=== PATIENT | female | born 1985 | race Two or more races ===

== ENCOUNTER → 2018-02-16 | Outpatient (CLI) | payer OTHER ==
[~2018-02-16] MED LIST: ALBU18HF INH; FERR325T18 PO
[2018-02-16 15:41] LABS: ALANINE AMINOTRANSFERASE 17 U/L (12-78); ALBUMIN 3.4 g/dL (3.4-5.0); ANION GAP 7 mmol/L (5-15); CALCIUM 8.8 mg/dL (8.5-10.1); CHLORIDE 110 mmol/L (98-107); CREATININE 0.71 mg/dL (0.55-1.02)
[2018-02-16 15:43] LABS: BASOPHILS # (AUTO) 0.05 x10^3/uL (0-0.1); BASOPHILS % (AUTO) 1 % (0-1); EOSINOPHILS % (AUTO) 8 % (1-7); LYMPHOCYTES # (AUTO) 1.28 x10^3/uL (1-3.4); LYMPHOCYTES % (AUTO) 13 % (22-44); MD NO; MEAN CORPUSCULAR HEMOGLOBIN 22.4 pg (27.0-34.8); MEAN CORPUSCULAR HGB CONC 31.4 g/dL (32.4-35.8); MEAN CORPUSCULAR VOLUME 71.2 fL (80-100); MEAN PLATELET VOLUME 9.4 fL (7.4-10.4); MONOCYTES # (AUTO) 0.38 x10^3/uL (0.2-0.8); MONOCYTES % (AUTO) 4 % (2-9); NEUTROPHILS # (AUTO) 7.23 x10^3/uL (1.8-6.8); NEUTROPHILS % (AUTO) 74 % (42-75); PLATELET COUNT 397 x10^3/uL (130-400); RED BLOOD COUNT 4.82 x10^6/uL (3.82-5.3); RED CELL DISTRIBUTION WIDTH 18.3 % (9.6-15.2)
[2018-02-16 15:45] LABS: ALKALINE PHOSPHATASE 106 U/L (45-117); BILIRUBIN,TOTAL 0.2 mg/dL (0.2-1.0); TOTAL PROTEIN 7.7 g/dL (6.4-8.2)
[2018-02-16 16:06] LABS: INTERNATIONAL NORMALIZED RATIO 1.02 (0.93-1.1); PROTHROMBIN TIME 10.5 Seconds (9.6-11.5)
== END | disposition home or self-care (01) ==
LOC: STAR 14:28
PROVIDERS: ATTEND Specialist
DX: D25.9 Leiomyoma of uterus, unspecified (principal)
CPT/HCPCS: 36415; 80053; 84703; 85025; 85610; 85730

== ENCOUNTER 2018-03-02 12:58 | Inpatient (IN) | payer OTHER ==
[~2018-03-02] VITALS: Ht 154.9 cm; Wt 138.4 kg
[~2018-03-02 12:58] MED LIST changes: -ALBU18HF INH
[2018-03-02] MEDS ORDERED: BUPIVACAINE/PF 0.25% ONE (13:00)
[2018-03-02] MEDS ORDERED: ALBU18HF INH (13:21)
[2018-03-02] MEDS ORDERED: ACETAMINOPHEN 500 MG TABLET PO ONE (13:30)
[2018-03-02] MEDS ORDERED: OxyconTIN ER 20 MG TAB.ER PO ONE (13:30)
[2018-03-02] MEDS ORDERED: GABAPENTIN 300 MG CAPSULE PO ONE (13:30)
[2018-03-02] MEDS ORDERED: SCOPOLAMINE PATCH, 1.5MG PATCH.TD72 TD ONE (13:30)
[2018-03-02] MEDS: LACTATED RINGERS 1,000 ML IV SCH (13:39)
[2018-03-02] MEDS ORDERED: DEXAMETHASONE 4 MG/ML, 1ML ONE (13:44)
[2018-03-02] MEDS ORDERED: PROPOFOL 10 MG/ML, 20ML ONE (13:44)
[2018-03-02] MEDS ORDERED: CEFOTETAN 2 GM ONE (13:44)
[2018-03-02] MEDS ORDERED: ROCURONIUM 10 MG/ML,10ML ONE (13:44)
[2018-03-02] MEDS ORDERED: SUGAMMADEX 200 MG/2 ML IVPush ONE ×2 (13:44→15:40)
[2018-03-02] MEDS ORDERED: PHENYLEPHRINE 10 MG/ML ONE (13:44)
[2018-03-02] MEDS ORDERED: FENTANYL PF 100 MCG/2ML IV PRN (15:00)
[2018-03-02] MEDS ORDERED: PNEUMOCOCCAL 23 VACCINE IM-VACC ONE (15:00)
[2018-03-02] MEDS ORDERED: HALOPERIDOL 5 MG/ML IV PRN (15:00)
[2018-03-02] MEDS ORDERED: HYDROmorphone 1 MG/ML, 1ML IV PRN (15:00)
[2018-03-02] MEDS ORDERED: OXYcodone 5 MG/5 ML ORAL.SOL UDC PO PRN (15:00)
[2018-03-02] MEDS ORDERED: ALBUTEROL SULFATE 2.5 MG/3 ML NPPB PRN (15:00)
[2018-03-02] MEDS ORDERED: PROMETHAZINE 25 MG/ML, 1ML IV PRN (15:00)
[2018-03-02] MEDS ORDERED: LABETALOL 5MG/ML, 20ML IV PRN (15:00)
[2018-03-02] MEDS ORDERED: LORazepam 2 MG/ML, 1ML IVPush PRN (15:00)
[2018-03-02] MEDS ORDERED: hydrALAzine 20 MG/ML, 1ML IV PRN (15:00)
[2018-03-02] MEDS ORDERED: FENTANYL PF 250 MCG/5ML ONE ×2 (16:08→16:09)
[2018-03-02] MEDS ORDERED: MIDAZOLAM 1 MG/ML, 2ML ONE (16:08)
[2018-03-02] MEDS ORDERED: FENTANYL PF 100 MCG/2ML ONE (16:17)
[2018-03-02] MEDS ORDERED: MEPERIDINE/PF 50 MG/ML ONE (16:46)
[2018-03-02] MEDS ORDERED: OXYcodone 5 MG/5 ML ORAL.SOL UDC ONE (16:47)
[2018-03-02] MEDS: MEPERIDINE/PF 25MG/0.5ML IVPush PRN ×2 (16:55→17:28)
[2018-03-02] MEDS ORDERED: ONDANSETRON 2MG/ML, 2ML IVPush PRN (17:00)
[2018-03-02] MEDS ORDERED: morphine SULFATE 10 MG/ML, 1ML IVPush PRN (17:00)
[2018-03-02] MEDS ORDERED: PROMETHAZINE 25 MG/ML, 1ML ONE (17:23)
[2018-03-02] MEDS ORDERED: ONDANSETRON 2MG/ML, 2ML ONE (17:24)
[2018-03-02] MEDS ORDERED: KETOROLAC 30 MG/1 ML ONE (17:31)
[2018-03-02] MEDS: KETOROLAC 30 MG/1 ML IVPush PRN (17:34)
[2018-03-02 19:57] VITALS: BP 110/74
[2018-03-03] MEDS: D5%-0.45NACL+KCL 20MEQ 1,000 ML IV SCH ×3 (00:15→13:29)
[2018-03-03 00:16] VITALS: BP 140/88
[2018-03-03 03:59] VITALS: BP 117/80
[2018-03-03] MEDS: KETOROLAC 30 MG/1 ML IVPush PRN ×2 (06:18→20:59)
[2018-03-03 07:40] VITALS: BP 93/60
[2018-03-03 13:27] VITALS: BP 126/79
[2018-03-03 20:02] VITALS: BP 125/79
[2018-03-04 02:02] VITALS: BP 109/69
[2018-03-04] MEDS: D5%-0.45NACL+KCL 20MEQ 1,000 ML IV SCH ×3 (07:13→16:58)
[2018-03-04 07:50] VITALS: BP 125/77
[2018-03-04] MEDS ORDERED: OXYcodone/APAP 5/325MG TABLET PO PRN (10:00)
[2018-03-04 14:47] VITALS: BP 124/76
[2018-03-04] MEDS ORDERED: ONDANSETRON ODT 4 MG PO PRN (19:30)
[2018-03-04 20:02] VITALS: BP 127/68
[2018-03-05 01:38] VITALS: BP 146/85
[2018-03-05 05:56] LABS: BASOPHILS # (AUTO) 0.04 x10^3/uL (0-0.1); BASOPHILS % (AUTO) 0 % (0-1); EOSINOPHILS # (AUTO) 0.24 x10^3/uL (0-0.4); EOSINOPHILS % (AUTO) 2 % (1-7); LYMPHOCYTES # (AUTO) 1.16 x10^3/uL (1-3.4); LYMPHOCYTES % (AUTO) 10 % (22-44); MD NO; MEAN CORPUSCULAR HEMOGLOBIN 22.7 pg (27.0-34.8); MEAN CORPUSCULAR HGB CONC 31.6 g/dL (32.4-35.8); MEAN CORPUSCULAR VOLUME 71.8 fL (80-100); MEAN PLATELET VOLUME 8.9 fL (7.4-10.4); MONOCYTES # (AUTO) 0.47 x10^3/uL (0.2-0.8); MONOCYTES % (AUTO) 4 % (2-9); NEUTROPHILS % (AUTO) 84 % (42-75); PLATELET COUNT 405 x10^3/uL (130-400); RED BLOOD COUNT 3.38 x10^6/uL (3.82-5.3); RED CELL DISTRIBUTION WIDTH 18.6 % (9.6-15.2)
[2018-03-05 06:05] LABS: ANION GAP 7 mmol/L (5-15); CALCIUM 8.6 mg/dL (8.5-10.1); CHLORIDE 107 mmol/L (98-107)
[2018-03-05 06:06] LABS: CREATININE 0.61 mg/dL (0.55-1.02)
[2018-03-05 07:50] VITALS: BP 145/87
[2018-03-05] MEDS: D5%-0.45NACL+KCL 20MEQ 1,000 ML IV SCH ×2 (08:00)
[2018-03-05] MEDS: LACTATED RINGERS 1,000 ML IV SCH (08:02)
[2018-03-05] MEDS ORDERED: ONDA4TAB7 PO (12:41)
[2018-03-05] MEDS ORDERED: OXYC-306 PO (12:42)
[2018-03-05] MEDS ORDERED: KETO10TA PO (13:14)
[2018-03-05] MEDS ORDERED: OXYC-302 PO (13:17)
[2018-03-05 13:29] LABS: MICROSCOPIC AUTO
[2018-03-05 13:33] LABS: CULTURE INDICATED? YES
== END 2018-03-05 14:02 | disposition home or self-care (01) | DRG 742 ==
LOC: OUT 12:58 → ORIP 16:41 → 4NOR 18:15 → DCLOUNGE 03-05 13:51
PROVIDERS: ADMIT Specialist; ATTEND Specialist
PROC: 0UT94ZZ Resection of Uterus, Percutaneous Endoscopic Approach (ICD-10-PCS; 2018-03-02)
PROC: 0UT74ZZ Resection of Bilateral Fallopian Tubes, Percutaneous Endoscopic Approach (ICD-10-PCS; 2018-03-02)
PROC: 8E0W4CZ Robotic Assisted Procedure of Trunk Region, Percutaneous Endoscopic Approach (ICD-10-PCS; principal; 2018-03-02 13:30)
DX: D25.9 Leiomyoma of uterus, unspecified (principal); Z68.43 Body mass index [BMI] 50.0-59.9, adult; E66.01 Morbid (severe) obesity due to excess calories; J45.909 Unspecified asthma, uncomplicated
CPT/HCPCS: 36415; 80048; 81001; 81025; 85025; 86850; 86900; 86923; 87086; 88305; 88307; 88331; 90732; J1100; J1885; J2175; J2250; J2405; J2550; J2704; J3010; J3490; Q0162; C1765; J2370; J3480; J7120; S0074